=== PATIENT | male | born 1970 | race Caucasian/White ===

== ENCOUNTER → 2018-04-18 | Outpatient (REF) | payer MEDICARE ==
[2018-04-18 12:07] LABS: ANION GAP 7 MEQ/L (8-16); BLOOD UREA NITROGEN 8 MG/DL (7-18); CALCIUM LEVEL 9.2 MG/DL (8.5-10.1); CARBON DIOXIDE LEVEL 29 MEQ/L (21-32); CHLORIDE LEVEL 103 MEQ/L (98-107); CHOLESTEROL LEVEL 204 MG/DL (<200); CHOLESTEROL RISK RATIO 7.846 (<5); CREATININE FOR GFR 1.01 MG/DL (0.70-1.30); GLOMERULAR FILTRATION RATE > 60.0 (>60); GLUCOSE, FASTING 101 MG/DL (70-100); HDL CHOLESTEROL 26 MG/DL (>40); NON-HDL-C 178 MG/DL; SODIUM LEVEL 139 MEQ/L (136-145); TRIGLYCERIDES LEVEL 558 MG/DL (<150)
[2018-04-18 12:45] LABS: ESTIMATED AVERAGE GLUCOSE 123 MG/DL (60-110); HEMOGLOBIN A1c 5.9 %
[2018-04-18 13:28] LABS: MALB URINE SIEMENS 39.1 MG/L; MAU/CREAT RATIO 11.4 MCG/MG (0.0-30.0)
== END ==
LOC: M SFHCPLAZ 09:36
DX: E11.9 Type 2 diabetes mellitus without complications (principal); E78.5 Hyperlipidemia, unspecified; Z23 Encounter for immunization
CPT/HCPCS: 83036

== ENCOUNTER 2018-05-01 07:55 | Day surgery (SDC) | payer MEDICARE ==
[~2018-05-01 07:55] MED LIST: ACETAMINOPHEN 325 MG TAB PO; PHENYLEPHRINE HCL 10 % OPHTH. SOL 5ML OD
[2018-05-01 08:29] LABS: BEDSIDE GLUCOSE 104 MG/DL (70-105)
[2018-05-01] MEDS: OFLOXACIN 0.3 % (OCUFLOX) OPTH SOL 5ML OD (08:31)
[2018-05-01] MEDS: LIDOCAINE 3.5 % 1ML OPHTH TOPICAL GEL OU (08:31)
[2018-05-01] MEDS: TROPICAMIDE 1% OPHTH SOLN 2ML OD (08:31)
[2018-05-01] MEDS: CYCLOPENTOLATE 2% OPHTH SOLN 2ML BTL OD (08:31)
[2018-05-01] MEDS: PHENYLEPHRINE 2.5% OPHTH SOL 2ML OD (08:31)
[2018-05-01] MEDS: POVIDONE-IODINE 5% OPHTH PREP SOL 30ML OD (10:58)
[2018-05-01] MEDS ORDERED: fentaNYL 100 MCG/2 ML INJECTION (J3010) As Ordered (11:00)
[2018-05-01] MEDS ORDERED: MIDAZOLAM INJ 2 MG/2 ML VIAL (J2250) As Ordered (11:00)
[2018-05-01] MEDS: BSS with VANC/TOB/EPI for EYE CASES IR (11:02)
[2018-05-01] MEDS: TRYPAN BLUE 0.06 % 2.25 ML OPHTH SYR (VISIONBLUE) As Ordered (11:03)
[2018-05-01] MEDS: LIDOCAINE 2% W/EPIN INJ 20ML **PRES FREE XX (11:05)
[2018-05-01] MEDS: LIDOCAINE 1% SDV 5 ML VIAL As Ordered (11:05)
[2018-05-01] MEDS: HEALON DUET PRO(HEALON 10MG/ML 0.55ML & HEALON ENDOCOAT 30MG/ML 0.85ML) As Ordered (11:05)
[2018-05-01] MEDS: MOXIFLOXACIN IN BSS 0.25MG/0.25ML INTRACAMERAL INJ (OR EYE ONLY)(J2280) As Ordered (11:06)
[2018-05-01] MEDS ORDERED: AcetaZOLAMIDE 500 MG ER CAP As Ordered (11:29)
[2018-05-01] MEDS: AcetaZOLAMIDE 500 MG ER CAP PO (11:30)
[2018-05-01] MEDS ORDERED: TRIMETHOBENZAMIDE 300 MG CAP PO (11:45)
[2018-05-01] MEDS ORDERED: ONDANSETRON 4MG/2ML VIAL (J2405) IV (11:45)
== END 2018-05-01 11:47 | disposition home or self-care (01) ==
LOC: M SDC 07:55
DX: H25.11 Age-related nuclear cataract, right eye (principal); E11.9 Type 2 diabetes mellitus without complications; E78.5 Hyperlipidemia, unspecified; K21.9 Gastro-esophageal reflux disease without esophagitis; B00.9 Herpesviral infection, unspecified; F31.9 Bipolar disorder, unspecified; F32.9 Major depressive disorder, single episode, unspecified; R51 Headache; J45.20 Mild intermittent asthma, uncomplicated; K58.0 Irritable bowel syndrome with diarrhea; R06.83 Snoring; G47.30 Sleep apnea, unspecified; T88.59XD Other complications of anesthesia, subsequent encounter; Z91.040 Latex allergy status; Z79.899 Other long term (current) drug therapy; Z79.84 Long term (current) use of oral hypoglycemic drugs; Z87.891 Personal history of nicotine dependence
CPT/HCPCS: 66984

== ENCOUNTER 2018-05-09 09:01 | Day surgery (SDC) | payer MEDICARE ==
[2018-05-09] MEDS: TROPICAMIDE 1% OPHTH SOLN 2ML OS (07:00)
[2018-05-09] MEDS: CYCLOPENTOLATE 2% OPHTH SOLN 2ML BTL OS (07:00)
[2018-05-09] MEDS: PHENYLEPHRINE 2.5% OPHTH SOL 2ML OS (07:00)
[2018-05-09] MEDS: OFLOXACIN 0.3 % (OCUFLOX) OPTH SOL 5ML OS (07:00)
[2018-05-09] MEDS: LIDOCAINE 3.5 % 1ML OPHTH TOPICAL GEL OU (07:00)
[~2018-05-09 09:01] MED LIST changes: -PHENYLEPHRINE HCL 10 % OPHTH. SOL 5ML OD; +PHENYLEPHRINE HCL 10 % OPHTH. SOL 5ML OS
[2018-05-09] MEDS ORDERED: MIDAZOLAM INJ 2 MG/2 ML VIAL (J2250) As Ordered (09:49)
[2018-05-09] MEDS ORDERED: fentaNYL 100 MCG/2 ML INJECTION (J3010) As Ordered (09:50)
[2018-05-09 10:05] LABS: BEDSIDE GLUCOSE 107 MG/DL (70-105)
[2018-05-09] MEDS: POVIDONE-IODINE 5% OPHTH PREP SOL 30ML As Ordered (12:07)
[2018-05-09] MEDS: LIDOCAINE 1% SDV 5 ML VIAL As Ordered (12:09)
[2018-05-09] MEDS: TRIAMCINOLONE PRES FR 40 MG/ML 1ML(TRIESENCE)(OR EYE ONLY)(J3300 PER 1MG) As Ordered (12:09)
[2018-05-09] MEDS: BSS with VANC/TOB/EPI for EYE CASES IR (12:09)
[2018-05-09] MEDS: MOXIFLOXACIN IN BSS 0.25MG/0.25ML INTRACAMERAL INJ (OR EYE ONLY)(J2280) As Ordered (12:09)
[2018-05-09] MEDS: HEALON DUET PRO(HEALON 10MG/ML 0.55ML & HEALON ENDOCOAT 30MG/ML 0.85ML) As Ordered (12:09)
[2018-05-09] MEDS: LIDOCAINE PRES-FREE 2% 10ML AMP XX (12:10)
[2018-05-09] MEDS ORDERED: TRIMETHOBENZAMIDE 300 MG CAP PO (12:45)
[2018-05-09] MEDS: AcetaZOLAMIDE 500 MG ER CAP PO (12:50)
== END 2018-05-09 13:15 | disposition home or self-care (01) ==
LOC: M SDC 09:01
DX: H25.9 Unspecified age-related cataract (principal); E11.9 Type 2 diabetes mellitus without complications; G47.30 Sleep apnea, unspecified; Z79.84 Long term (current) use of oral hypoglycemic drugs; E78.5 Hyperlipidemia, unspecified; F31.9 Bipolar disorder, unspecified; Z91.040 Latex allergy status
CPT/HCPCS: 66984

== ENCOUNTER 2018-08-14 16:06 | Emergency (ER) | payer MEDICARE, MEDICAID ==
[~2018-08-14] VITALS: Ht 177.8 cm; Wt 108.8 kg
[~2018-08-14 16:06] MED LIST changes: -ACETAMINOPHEN 325 MG TAB PO; +ARIP1TAB6 PO; +CITA10SO6 PO; +METF500T13 PO; -PHENYLEPHRINE HCL 10 % OPHTH. SOL 5ML OS; +TYLE325T5 PO
[2018-08-14] MEDS ORDERED: NAPROXEN 250 MG TAB PO ONE (16:45)
--- NOTE | 2018-08-14 17:09 | REP ---
Left forearm two views History: Fall There is no acute fracture or dislocation. The joint spaces are normal in appearance. Impression: There is no acute fracture or dislocation. Electronically Signed by Valeriano Maya MD 08/14/2018 05:01 P
[2018-08-14] MEDS ORDERED: NAPR-50 PO (17:30)
[2018-08-14 17:40] VITALS: BP 102/56
--- NOTE | 2018-08-14 18:54 | REP ---
Bilateral rib series: Five views including PA chest. History: Posterior rib pain after a fall. Findings: A chest radiograph shows no evidence of pneumothorax or hydrothorax. Mediastinum is not widened. Heart is not enlarged. There is evidence of old post-traumatic deformity and calcification at the distal clavicle on the left. Multiple bilateral rib views show bilaterally intact anterior posterior rib margins. No rib fracture or bony destructive lesion is seen. Impression: Old appearing post traumatic deformity of the distal clavicle on the left at the AC joint. Otherwise no active disease. No rib fracture or bony destructive lesions seen. Electronically Signed by Jorge L Kwan MD 08/14/2018 07:23 P
== END 2018-08-14 17:43 | disposition home or self-care (01) ==
LOC: M ED 16:06
DX: S20.229A Contusion of unspecified back wall of thorax, initial encounter (principal); S50.12XA Contusion of left forearm, initial encounter; W10.9XXA Fall (on) (from) unspecified stairs and steps, initial encounter; Y92.099 Unspecified place in other non-institutional residence as the place of occurrence of the external cause; Y93.9 Activity, unspecified; Y99.9 Unspecified external cause status; E11.9 Type 2 diabetes mellitus without complications; Z87.81 Personal history of (healed) traumatic fracture; Z79.84 Long term (current) use of oral hypoglycemic drugs; Z79.899 Other long term (current) drug therapy; Z91.040 Latex allergy status

== ENCOUNTER → 2018-10-02 | Outpatient (REF) | payer MEDICARE, MEDICAID ==
[~2018-10-02] MED LIST changes: +NAPR-837 PO
[2018-10-02 12:24] LABS: BASO # 0.1 10^3/uL (0.0-0.2); BASO % 0.7 % (0.0-1.0); EOS # 0.2 10^3/uL (0.0-0.50); EOS % 3.2 % (0.0-3.0); HEMATOCRIT 44.3 % (42.0-52.0); HEMOGLOBIN 14.4 g/dl (13.5-17.5); LYMPH # 3.3 10^3/uL (1.5-4.5); LYMPH % 44.8 % (24.0-44.0); MEAN CORPUSCULAR HEMOGLOBIN 28.3 pg (27.0-33.0); MEAN CORPUSCULAR HGB CONC 32.5 g/dl (32.0-36.5); MONO # 0.5 10^3/uL (0.0-0.8); MONO % 6.4 % (0.0-5.0); NEUTROPHILS # 3.3 10^3/uL (1.8-7.7); NEUTROPHILS % 44.6 % (36.0-66.0); PLATELET COUNT, AUTOMATED 239 10^3/uL (150-450); RED BLOOD COUNT 5.09 10^6/uL (4.30-6.10); WHITE BLOOD COUNT 7.3 10^3/uL (4.0-10.0)
[2018-10-02 12:55] LABS: CHOLESTEROL RISK RATIO 4.071 (<5)
[2018-10-02 14:35] LABS: HEMOGLOBIN A1c 5.5 %
== END ==
LOC: M SFHCPLAZ 09:39
PROVIDERS: ATTEND Family Medicine
DX: F31.9 Bipolar disorder, unspecified (principal); E11.9 Type 2 diabetes mellitus without complications; E78.2 Mixed hyperlipidemia

== ENCOUNTER → 2018-10-18 | Outpatient (CLI) | payer MEDICARE, MEDICAID ==
[~2018-10-18] MED LIST changes: +E-Z-GAS II EFFERVESCENT PACKET (SODIUM BICARB./CITRIC ACID/SIMETHICONE) As Ordered ONE; +E-Z-HD 98% w/w 340GM SUSP BTL As Ordered ONE; +E-Z-PAQUE 96% w/w SUSP 176GM BTL As Ordered ONE
--- NOTE | 2018-10-19 11:01 | REP ---
Esophagram The procedure was performed under the direct supervision of Dr. Ferguson. The images were reviewed with Dr. Ferguson. A single view PA chest x-ray is submitted as a granite setter film. There is no change compared to a previous chest x-ray performed on 12/2018. Liquid barium and gas producing granules were given in the erect position as well as liquid barium in the prone oblique positions in order to perform a double contrast esophagram examination. The oral and pharyngeal stages of deglutition are unremarkable. Esophageal transport is prompt and efficient and there is no esophagitis, stricture, mucosal ring or hiatal hernia. Gastroesophageal reflux is not demonstrated on this examination. Impression: Essentially unremarkable double contrast esophagram examination. 0.7 minutes of fluoro time was utilized for this procedure. Reviewed by LLOITA Flores 10/18/2018 03:49 P Electronically Signed by Jamil Ferguson MD 10/19/2018 10:50 A
== END ==
LOC: M RAD 07:19
PROVIDERS: ATTEND Family Medicine
DX: Z87.19 Personal history of other diseases of the digestive system (principal)

== ENCOUNTER → 2018-11-16 | Outpatient (CLI) | payer MEDICARE, MEDICAID ==
[~2018-11-16] MED LIST changes: -E-Z-GAS II EFFERVESCENT PACKET (SODIUM BICARB./CITRIC ACID/SIMETHICONE) As Ordered ONE; -E-Z-HD 98% w/w 340GM SUSP BTL As Ordered ONE; -E-Z-PAQUE 96% w/w SUSP 176GM BTL As Ordered ONE
[2018-11-16 15:32] LABS: BLOOD UREA NITROGEN 9 MG/DL (7-18); CREATININE FOR GFR 0.94 MG/DL (0.70-1.30); GLOMERULAR FILTRATION RATE > 60.0 (>60)
== END ==
LOC: M LAB 14:31
PROVIDERS: ATTEND Physician Assistant Medical
DX: R63.4 Abnormal weight loss (principal)

== ENCOUNTER → 2018-11-28 | Outpatient (CLI) | payer MEDICARE, MEDICAID ==
[~2018-11-28] MED LIST changes: +CELE10TA PO; +D200CAP2 PO; +GASTROGRAFIN SOLUTION 30ML (Q9963) As Ordered ONE; +ISOVUE-370 76% 100ML VIAL (Q9967) As Ordered ONE; +MULTCAP PO
--- NOTE | 2018-11-28 16:40 | REP ---
Clinical: Abnormal weight loss. Technique: Axial contrast enhanced images from the lung bases to the pubic symphysis using oral (per protocol) and 100 ml Isovue 370 intravenous contrast material including precontrast images of the abdomen as well as coronal and sagittal re-formations. Findings: Lung bases are clear. Visualized heart and pericardium normal. Liver, spleen, pancreas, gallbladder, bilateral adrenal glands and kidneys are essentially normal. The enteric system is without obstruction or acute inflammatory process. Normal terminal ileum and appendix identified in the right lower quadrant. Scattered sigmoid diverticula noted without acute diverticulitis. Pelvis demonstrates normal bladder and age appropriate prostate/seminal vesicles. No ascites. No free air. No adenopathy. Abdominal aorta without aneurysm or dissection. Musculoskeletal structures demonstrate age-related changes without focal osseous abnormality. Impression: 1. No acute abdominopelvic pathology appreciated. 2. Scattered sigmoid diverticula without acute diverticulitis. Electronically Signed by Alex Mariscal MD 11/28/2018 04:31 P
== END ==
LOC: M RAD 14:24
PROVIDERS: ATTEND Physician Assistant Medical
DX: R63.4 Abnormal weight loss (principal); R19.8 Other specified symptoms and signs involving the digestive system and abdomen; K57.30 Diverticulosis of large intestine without perforation or abscess without bleeding
CPT/HCPCS: 74178; Q9963; Q9967

== ENCOUNTER 2018-12-29 10:49 | Day surgery (SDC) | payer MEDICARE, MEDICAID ==
[~2018-12-29] VITALS: Ht 177.8 cm; Wt 99.8 kg
[~2018-12-29 10:49] MED LIST changes: -GASTROGRAFIN SOLUTION 30ML (Q9963) As Ordered ONE; -ISOVUE-370 76% 100ML VIAL (Q9967) As Ordered ONE; +LIDOCAINE 2% INJ 100 MG/5 ML SDV (FOR ANES.) As Ordered ONE; +PROPOFOL 200 MG/20 ML VIAL As Ordered ONE
[2018-12-29] MEDS ORDERED: fentaNYL 100 MCG/2 ML INJECTION (J3010) As Ordered ONE (12:11)
--- NOTE | 2018-12-29 12:29 | ROOR ---
Patient Name: Yobany Sosa Procedure Date: 12/29/2018 12:07 PM Date of : 1970 Age: 48 Room: [facility] Gender: Male Note Status: Finalized Procedure: Upper GI endoscopy Indications: Heartburn, Unexplained chest pain, Weight loss Providers: Gigi ELAINE MD Referring MD: Elías HAYWOOD MD Requesting Provider: Medicines: Monitored Anesthesia Care Complications: No immediate complications. Procedure: Pre-Anesthesia Assessment: - The heart rate, respiratory rate, oxygen saturations, blood pressure, adequacy of pulmonary ventilation, and response to care were monitored throughout the procedure. The Endoscope was introduced through the mouth, and advanced to the third part of duodenum. The upper GI endoscopy was accomplished without difficulty. The patient tolerated the procedure well. Findings: The examined esophagus was normal. This was biopsied with a cold forceps for evaluation of eosinophilic esophagitis. The Z-line was variable and was found 40 cm from the incisors. This was biopsied with a cold forceps for histology. Mild gastritis, Biopsies were taken with a cold forceps for Helicobacter pylori testing. The cardia and gastric fundus were normal on retroflexion. The examined duodenum was normal. Biopsies for histology were taken with a cold forceps for evaluation of celiac disease. Impression: - Normal esophagus. Biopsied mid/proximal esophagus. - Z-line variable, 40 cm from the incisors. Biopsied distal esophagus. - Mild gastritis - Stomach was otherwise normal. - Normal examined duodenum. Biopsied second and third portion. Recommendation: - Telephone endoscopist for pathology results in 2 weeks. - Continue present medications. - Perform a colonoscopy. - For weight loss, I did not find any significant abnormalities. You will need a colonoscopy, or barium enema, or Virtual colonoscopy to rule out colon cancer. Please let us know if you change your apolinar and agree to one of these tests. Gigi Elaine MD Gigi ELAINE MD 12/29/2018 12:28:43 PM Electronically signed by Gigi ELAINE MD Number of Addenda: 0 Note Initiated On: 12/29/2018 12:07 PM Estimated Blood Loss: Estimated blood loss: none.
[2018-12-29] MEDS ORDERED: ceFAZolin 1GM INJ (J0690 PER 500MG) As Ordered ONE (12:40)
[2018-12-29 13:00] VITALS: BP 112/57
== END 2018-12-29 13:00 | disposition home or self-care (01) ==
LOC: M OPP 10:49
PROVIDERS: ATTEND Internal Medicine Gastroenterology
DX: K22.8 Other specified diseases of esophagus (principal); K29.70 Gastritis, unspecified, without bleeding; R12 Heartburn; R63.4 Abnormal weight loss; R07.9 Chest pain, unspecified
CPT/HCPCS: 43239; 88305; J0690; J3010

== ENCOUNTER 2019-01-18 15:15 | Outpatient (RCR) | payer MEDICARE, MEDICAID ==
[~2019-01-18 15:15] MED LIST changes: -LIDOCAINE 2% INJ 100 MG/5 ML SDV (FOR ANES.) As Ordered ONE; -PROPOFOL 200 MG/20 ML VIAL As Ordered ONE
== END 2019-01-27 ==
LOC: M PT 15:15
PROVIDERS: ATTEND Family Medicine
DX: Z51.89 Encounter for other specified aftercare (principal); M54.5 Low back pain